=== PATIENT | male | born 1980 | race Caucasian/White ===

== ENCOUNTER → 2017-04-20 | Outpatient (CLI) | payer OTHER | END | disposition home or self-care (01) | LOC: RAD 16:36 | PROVIDERS: ATTEND Physician Assistant | DX: S83.511A Sprain of anterior cruciate ligament of right knee, initial encounter (principal); M25.461 Effusion, right knee; M71.21 Synovial cyst of popliteal space [Baker], right knee; X58.XXXA Exposure to other specified factors, initial encounter; Y93.89 Activity, other specified; Y92.89 Other specified places as the place of occurrence of the external cause; Y99.8 Other external cause status ==

== ENCOUNTER 2017-05-14 02:23 | Emergency (ER) | payer OTHER ==
[~2017-05-14] VITALS: Ht 193 cm; Wt 92.9 kg
[2017-05-14] MEDS ORDERED: MAALOX/HYOSCYAMINE/LIDOCAINE 45 ML BTL ONE (02:44)
[2017-05-14] MEDS ORDERED: MAALOX/HYOSCYAMINE/LIDOCAINE 45 ML BTL PO ONE (03:00)
[2017-05-14 03:06] LABS: HEMATOCRIT 44.7 % (39.2-51.8); HEMOGLOBIN 15.3 g/dL (13.7-18.0); WHITE BLOOD COUNT 6.6 x10^3/uL (3.4-10)
[2017-05-14 03:16] LABS: ASPARTATE AMINO TRANSFERASE 20 U/L (15-37); BLOOD UREA NITROGEN 12 mg/dL (7-18)
[2017-05-14 03:22] LABS: IS PT STATUS REG ER OR PRE ER? YES
[2017-05-14 03:56] VITALS: BP 136/83
== END 2017-05-14 04:01 | disposition home or self-care (01) ==
LOC: ED 03:33
DX: R07.89 Other chest pain (principal)
CPT/HCPCS: 36415; 71020; 80053; 84484; 85025; 93005; 99285

== ENCOUNTER → 2017-08-21 | Outpatient (CLI) | payer OTHER | LOC: CFH 15:06 | PROVIDERS: ATTEND Nurse Practitioner Family | DX: J32.4 Chronic pansinusitis (principal); J34.2 Deviated nasal septum | CPT/HCPCS: 70486 ==

== ENCOUNTER 2017-10-14 06:43 | Day surgery (SDC) | payer OTHER ==
[~2017-10-14] VITALS: Ht 193 cm; Wt 95.1 kg
[2017-10-14 07:29] VITALS: BP 156/99
[2017-10-14] MEDS ORDERED: LACTATED RINGERS 1,000 ML IV SCH (07:31)
[2017-10-14] MEDS ORDERED: PRED10TA PO (07:34)
[2017-10-14] MEDS ORDERED: CEFD300C37 PO (07:34)
[2017-10-14 07:58] LABS: BARBITURATE SCREEN, URINE Negative (Negative); BENZODIAZEPINE SCREEN, URINE Negative (Negative); CANNABINOID SCREEN, URINE Positive (Negative); COCAINE SCREEN, URINE Negative (Negative); METHADONE SCREEN, URINE Negative (Negative); OPIATE SCREEN, URINE Negative (Negative)
[2017-10-14] MEDS ORDERED: LIDOCAINE-MPF 1%, 2ML INFIL ONE (08:00)
[2017-10-14] MEDS ORDERED: NEO/BACI/POLY/HC OINT 15GM ONE (08:03)
[2017-10-14 08:04] LABS: AMPHETAMINE SCREEN, URINE Negative (Negative)
[2017-10-14] MEDS ORDERED: OXYMETAZOLINE NASAL SPRAY 0.05%, 15ML ONE ×2 (08:04→09:07)
[2017-10-14] MEDS ORDERED: LIDOCAINE-MPF 1%, 2ML ONE (08:04)
[2017-10-14] MEDS ORDERED: EPINEPHRINE 1 MG/ML, 1ML ONE (08:07)
[2017-10-14] MEDS ORDERED: BUPIVACAINE/PF 0.25% ONE (08:07)
[2017-10-14] MEDS ORDERED: FENTANYL PF 250 MCG/5ML ONE (08:17)
[2017-10-14] MEDS ORDERED: MIDAZOLAM 1 MG/ML, 2ML ONE (08:17)
[2017-10-14] MEDS ORDERED: SUCCINYLCHOLINE 20 MG/ML, 10ML ONE (08:18)
[2017-10-14] MEDS ORDERED: DEXAMETHASONE 4 MG/ML, 1ML ONE ×2 (08:18→08:19)
[2017-10-14] MEDS ORDERED: LIDOCAINE GEL 2%, 5ML ONE (08:18)
[2017-10-14] MEDS ORDERED: GLYCOPYRROLATE 0.2MG/1ML, 5ML ONE (08:19)
[2017-10-14] MEDS ORDERED: PROPOFOL 10 MG/ML, 20ML ONE (08:19)
[2017-10-14] MEDS ORDERED: ONDANSETRON 2MG/ML, 2ML ONE (08:19)
[2017-10-14] MEDS ORDERED: ROCURONIUM 10 MG/ML,10ML ONE (08:19)
[2017-10-14] MEDS ORDERED: NALOXONE 0.4 MG/ML, 1ML ONE (08:19)
[2017-10-14] MEDS ORDERED: KETOROLAC 30 MG/1 ML ONE (08:19)
[2017-10-14] MEDS ORDERED: CEFAZOLIN 1,000 MG ONE (08:19)
[2017-10-14] MEDS ORDERED: BUPIVACAINE/PF 0.25% INFIL ONE (08:49)
[2017-10-14] MEDS ORDERED: EPINEPHRINE 1 MG/ML, 1ML INFIL ONE (08:50)
[2017-10-14] MEDS ORDERED: NEO/BACI/POLY/HC OINT 15GM TP ONE (08:50)
[2017-10-14] MEDS ORDERED: FENTANYL PF 100 MCG/2ML ONE ×4 (08:53→10:13)
[2017-10-14] MEDS ORDERED: OXYMETAZOLINE NASAL SPRAY 0.05%, 15ML NAS ONE (08:54)
[2017-10-14] MEDS ORDERED: PROMETHAZINE 12.5 MG SUPP PR PRN (09:00)
[2017-10-14] MEDS ORDERED: MEPERIDINE/PF 25MG/0.5ML IVPush PRN (09:00)
[2017-10-14] MEDS ORDERED: MIDAZOLAM 1 MG/ML, 2ML IV PRN (09:00)
[2017-10-14] MEDS ORDERED: OXYcodone 5 MG/5 ML ORAL.SOL UDC PO PRN (09:00)
[2017-10-14] MEDS ORDERED: morphine SULFATE 10 MG/ML, 1ML IV PRN (09:00)
[2017-10-14] MEDS ORDERED: ONDANSETRON 2MG/ML, 2ML IVPush PRN (09:00)
[2017-10-14] MEDS ORDERED: ACETAMINOPHEN 325 MG TABLET PO PRN (09:00)
[2017-10-14] MEDS ORDERED: ALBUTEROL SULFATE 2.5 MG/3 ML NPPB PRN (09:00)
[2017-10-14] MEDS ORDERED: LABETALOL 5MG/ML, 20ML IV PRN (09:00)
[2017-10-14] MEDS ORDERED: hydrALAzine 20 MG/ML, 1ML IV PRN (09:00)
[2017-10-14] MEDS ORDERED: ACETAMINOPHEN 650 MG/20.3 ML UDC ONE (10:13)
[2017-10-14] MEDS ORDERED: OXYcodone 5 MG/5 ML ORAL.SOL UDC ONE (10:14)
[2017-10-14] MEDS: FENTANYL PF 100 MCG/2ML IV PRN ×2 (10:15→10:25)
[2017-10-14] MEDS ORDERED: LABETALOL 5MG/ML, 20ML ONE (10:31)
== END 2017-10-14 13:45 ==
LOC: OUT 06:43
PROVIDERS: ATTEND Otolaryngology
DX: J34.2 Deviated nasal septum (principal); J34.89 Other specified disorders of nose and nasal sinuses; J34.3 Hypertrophy of nasal turbinates
CPT/HCPCS: 30140; 30520; 31254; 31256; 31276; 80307; 88304; J0171; J0330; J0690; J1100; J1885; J2250; J2310; J2405; J2704; J3010; J3490; J7120; S1090